=== PATIENT | female | born 1990 | race Caucasian/White ===

== ENCOUNTER 2019-07-16 16:36 | Emergency (ER) | payer OTHER, SELFPAY ==
[2019-07-16 16:45] VITALS: BP 121/82; PULSE 67; RESP 20; TEMP 36.3; O2SAT 100
--- NOTE | 2019-07-16 16:50 | ED.GENADULT ---
HPI - General Adult General Chief complaint: Upper Respiratory Infection Stated complaint: congestion/cough/sore throat Time Seen by Provider: 07/16/19 16:50 Source: patient Mode of arrival: ambulatory Limitations: no limitations History of Present Illness HPI narrative: 28-year-old female patient presents to the [facility] with complaints of cold symptoms for the past 12 days with a slight cough. Patient states she has had a lot of pressure to her head and face along with some itchy watery eyes, pressure to bilateral ears, nasal congestion and slight runny nose. Patient states that she has a cough mainly in the morning when she wakes up and states she has been coughing up some green sputum. Patient denies any chest pain or shortness of breath. Patient denies any abdominal pain, nausea, vomiting or diarrhea. Patient denies any fevers that she is aware of. Patient states that she did get a flu shot this year. Patient denies any or breast-feeding at this time. Related Data Allergies Allergy/AdvReac Type Severity Reaction Status Date / Time No Known Allergies Allergy Uncoded 03/29/19 17:25 Review of Systems Review of Systems: Narrative: CONSTITUTIONAL: Denies fever, chills, or sweats. EYES: Denies visual changes, positive redness, and clear discharge. ENT: Positive rhinorrhea, congestion, sore throat, and bilateral otalgia. CARDIOVASCULAR: Denies chest pain, palpitations, or edema. RESPIRATORY: Positive mild productive cough, denies dyspnea. GASTROINTESTINAL: Denies abdominal pain, nausea, vomiting, or diarrhea. GENITOURINARY: Denies dysuria or hematuria. SKIN: Denies rash or itching. MUSCULOSKELETAL: Denies back pain, joint pain, or myalgia. NEUROLOGIC: Positive headache, denies numbness, or weakness. PSYCHIATRIC: Denies anxiety or depression. PMFSH Social History Social History Gender identity (if verbalized by the patient): Female Comments At the time of my signature I agree with nursing past medical history, surgical, social, and family history. There is no relevant family history pertinent to the presenting complaint. Exam Narrative: Exam Narrative: GENERAL: Well-appearing, well-nourished, and in no acute distress. HEAD: Normocephalic, atraumatic. Tenderness noted to frontal maxillary sinuses on palpation. EYES: PERRLA and EOMI. ENT: Nares with erythema and edema noted bilaterally, no rhinorrhea or epistaxis. Mucous membranes moist. Posterior pharynx with no erythema, tonsillectomy, exudates or lesions present. Bilateral TMs are slightly cloudy but no erythema or foreign bodies in the canal. NECK: Supple. No lymphadenopathy CHEST: Clear to auscultation. No respiratory distress. HEART: Regular rate and rhythm. No murmur heard. Normal peripheral pulses. ABDOMEN: Soft, nontender, nondistended, normal active bowel sounds. EXTREMITIES: Normal range of motion. No edema. SKIN: Warm, dry, no rash. NEURO: No focal deficits. Alert and oriented x3. Course Vital Signs Vital signs: Vital Signs Temperature 36.3 C L 07/16/19 16:45 Pulse Rate 67 07/16/19 16:45 Respiratory Rate 20 07/16/19 16:45 Blood Pressure 121/82 07/16/19 16:45 Pulse Oximetry 100 07/16/19 16:45 Temperature 36.3 C L 07/16/19 16:45 Pulse Rate 67 07/16/19 16:45 Respiratory Rate 20 07/16/19 16:45 Blood Pressure 121/82 07/16/19 16:45 Pulse Oximetry 100 07/16/19 16:45 Vital signs reviewed. The patient has been informed that they may have pre-hypertension or Hypertension based on a BP reading in the department. I recommend that the patient call the primary care provider listed on their discharge instructions or a physician of their choice this week to arrange follow up for further evaluation of possible pre-hypertension or Hypertension Medical Decision Making Differential Diagnosis Differential Diagnosis: Differential diagnosis: Allergic rhinitis, chronic sinusi
== END 2019-07-16 17:00 | disposition home or self-care (01) ==
PROVIDERS: Emergency Provider Nurse Practitioner Family
DX: J01.10 Acute frontal sinusitis, unspecified (principal); J01.00 Acute maxillary sinusitis, unspecified
CPT/HCPCS: 99213; G0463

== ENCOUNTER 2020-10-28 05:57 | Inpatient (IN) | payer BC, SELFPAY ==
[2020-10-28] VITALS (89 sets, daily range): BP systolic 68–152; BP diastolic 37–94; PULSE 52–100; RESP 18–20; TEMP 36.2–37.4; O2SAT 99–100; BMI 38.0
[2020-10-28] MEDS: LACTATED RINGERS 1,000 ML 125 ML IV CONT ×3 (06:24→11:04)
[2020-10-28] MEDS: OXYTOCIN 30 UNITS/NS 500 ML 30 UNITS/500 ML BAG IV CONT (06:25)
--- NOTE | 2020-10-28 06:30 | LDADM ---
This patient, Mari Campbell, was admitted to Labor/Delivery/Recovery 108 on 10/28/20 at 05:57. Plans for labor, pain management and were discussed with patient. Patient/family oriented to hospital policies and general routines including ID bracelet, bed and alarms, visiting hours, pain management, procedures, bathroom and other care routines, personal items, smoking policy, room service/diet and guest tray routines, security routines, and visiting hours. Patient/Family are encouraged to report perceived risks to care and to ask questions if they do not understand what they are told or what they should do. See OBIX for further documentation.
[2020-10-28 06:34] LABS: Basophils Percent Auto 0.1 % (0.2-1.2); Eosinophils Percent Auto 0.1 % (0-4.4); Hematocrit 35.4 % (37.0-47.0); Hemoglobin 11.9 g/dL (12.0-15.0); Immature Granulocyte Absolute 0.02 K/mm3 (0.00-0.031); Immature Granulocyte Percent A 0.3 % (0-0.5); Lymphocytes Absolute Auto 1.99 K/mm3 (0.9-3.2); Lymphocytes Percent Auto 27.5 % (18.3-44.2); Mean Corpuscular HGB Conc 33.6 g/dl (32-36); Mean Corpuscular Hemoglobin 29.1 pg (26-34); Mean Corpuscular Volume 86.6 fl (80-100); Mean Platelet Volume 10.9 fl (7.4-10.4); Monocytes Absolute Auto 0.5 K/mm3 (0.1-0.6); Monocytes Percent Auto 7.5 % (2.6-8.5); Neutrophils Absolute Auto 4.7 K/mm3 (1.3-6.7); Neutrophils Percent Auto 64.5 % (45.5-73.1); Platelet Count Result 173 k/mm3 (150-375); Red Blood Count 4.09 M/mm3 (4.2-5.4); Red Cell Distribution Width 13.4 % (11.5-14.5); White Blood Count 7.2 K/mm3 (4.5-10.0)
--- NOTE | 2020-10-28 06:56 | P.PNAN_ITS ---
Anes - Eval Pre Procedure Procedure: labor epidural Date/Time: 10/28/20 06:56 Surgeon: tracy Preop Diagnosis: pain during labor Pre Op Diagnosis: IOL Patient Data Age: 30 Gender: F Height: 1.68 m Weight: 107 kg Last Vital Signs Pulse 76 10/28/20 06:44 BP 113/77 10/28/20 06:44 Allergies Allergy/AdvReac Type Severity Reaction Status Date / Time No Known Allergies Allergy unknown Uncoded 03/10/20 13:39 Home Medications Medication Instructions Recorded Confirmed Type PNV no.[id number] 1 tablet PO DAILY 10/03/20 10/28/20 History [ Gummies] famotidine [Pepcid] 20 mg PO DAILY 10/03/20 10/28/20 History valacyclovir [Valtrex] 500 mg PO DAILY 10/03/20 10/28/20 History Laboratory Tests 10/28/20 10/28/20 06:23 06:23 WBC 7.2 K/mm3 K/mm3 (4.5-10.0) RBC 4.09 M/mm3 L M/mm3 (4.2-5.4) Hgb 11.9 g/dL L g/dL (12.0-15.0) Hct 35.4 % L % (37.0-47.0) MCV 86.6 fl fl (80-100) MCH 29.1 pg pg (26-34) MCHC 33.6 g/dl g/dl (32-36) RDW 13.4 % % (11.5-14.5) Plt Count 173 k/mm3 k/mm3 (150-375) MPV 10.9 fl H fl (7.4-10.4) Immature Gran % (Auto) 0.3 % % (0-0.5) Neut % (Auto) 64.5 % % (45.5-73.1) Lymph % (Auto) 27.5 % % (18.3-44.2) [place] % (Auto) 7.5 % % (2.6-8.5) Eos % (Auto) 0.1 % % (0-4.4) Baso % (Auto) 0.1 % L % (0.2-1.2) Lymph # (Auto) 1.99 K/mm3 K/mm3 (0.9-3.2) [place] # (Auto) 0.5 K/mm3 K/mm3 (0.1-0.6) Eos # (Auto) 0.0 K/mm3 K/mm3 (0-0.3) Baso # (Auto) 0.0 K/mm3 K/mm3 (0.0-0.1) Abs Immat Gran (auto) 0.02 K/mm3 K/mm3 (0.00-0.031) Absolute Neuts (auto) 4.7 K/mm3 K/mm3 (1.3-6.7) Absolute Nucleated RBC 0.0 K/mm3 K/mm3 (0.0-0.012) Nucleated RBC % 0.0 % % (0.0-0.2) RPR Pending Patient hx anesthesia problems: none Family hx anesthesia problems: none PMFSH Past Medical History Medical History (Updated 03/10/20 @ 14:33 by Ayanna Delgadillo MD) Asthma HSV-1 (herpes simplex virus 1) infection Migraines Vaginal delivery Surgical History Surgical History [place] teeth removed Family History Family History Grandparent Carcinoma of colon Diabetes mellitus Cerebrovascular accident Leukemia Mother Fibromyalgia Social History Social History Smoking status: Never smoker Alcohol intake: current Drinks per week: 1 Substance use: never Gender identity (if verbalized by the patient): Female Spiritual care concerns: No Exam Day of Procedure 10/28/20 06:56
--- NOTE | 2020-10-28 08:45 | WPDOBADMIT ---
Obstetrics - Admit Note Admission Note: record reviewed. Additions to the history and/or subsequent changes in the physical findings follow. 30 y/o at 40 1/7 weeks here for induction of labor. GBS neg. 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 AVSS NST reactive TOCO: contractions every 2-4 min ABD soft, nontender, gravid, vertex EXT nontender Cervix 3/50/-2. AROM with clear fluid. Vertex. A: IUP at 40 1/7 weeks, desiring induction of labor. Favorable cervix. P: Oxytocin. Anticipate .
[2020-10-28 10:20] LABS: Rapid Plasma Reagin Non-Reactive (NonReactive)
--- NOTE | 2020-10-28 12:00 | PM.OBPNLAB ---
Pain Control Date/time seen: 10/28/20 1200 Comments: Comfortable with epidural. Pelvic Exam Dilation (cm): 6 Effacement (%): 90 station: 0 Contractions Contraction frequency: 3 Contraction pattern: Regular Status status: Category l Assessment and Plan Pitocin rate (mU/min): 12 Comments: Continue labor
[2020-10-28] MEDS: OXYTOCIN 30 UNITS/NS 500 ML 30 UNITS/500 ML BAG 125 UNITS IV CONT (13:14)
--- NOTE | 2020-10-28 13:19 | PM.OBPRVD ---
OB - Delivery Note Procedure Delivery date: 10/28/20 Procedure: Induction of labor with Induction method: per pitocin protocol Delivery augmentation: rupture of membranes Delivery monitor: external FHT, external uterine and internal uterine Route of delivery: Laceration Description: None Specimen: Yes (cord blood) Quantitative Blood Loss (ml): 65 Anesthesia type: Epidural Disposition: PACU Complications: None Narrative: 30 y/o at 40 1/7 weeks gestation who presented to the hospital for induction of labor. Oxytocin was administered intravenously. Amniotomy was performed with return of clear fluid. She received an epidural for pain control. Her labor progressed and her cervix dilated completely. She pushed with good effort and delivered the infant's head to the perineum, followed by the body. The nose and mouth were bulb suctioned. After a delay, the cord was clamped and cut. The was handed off the field. Cord blood was collected. The placenta delivered spontaneously and was grossly normal in appearance. The usual 3 vessel cord was noted. The perineum was intact. Needle and instrument counts were correct. The patient was taken to recovery room in stable condition. The went to the nursery in stable condition. I was present and scrubbed for the entire delivery. Baby Date of : 10/28/20 Time of : 12:55 Weeks of gestation at delivery: 40 gender: Female Weight (pounds): 8 Weight (ounces): 1 presentation: vertex position: Right Occiput Anterior Placenta delivery description: Spontaneous and Normal Configuration cord vessel description: 3 Vessels and Delayed Cord Clamping score one minute: 9 score five minutes: 9
--- NOTE | 2020-10-28 13:23 | PM.OBDSVD ---
DS: Admitting Diagnosis Admitting Diagnosis Admitting Diagnosis: IUP at 40 1/7 weeks Favorable cervix DS: Discharge Diagnosis Discharge Diagnosis (1) (normal spontaneous vaginal delivery): Code(s): O80 - Encounter for full-term uncomplicated delivery Status: Acute OB - DS: Summary OB Procedures : None OB Procedures Intrapartum: Spontaneous Vag Delivery OB Procedures: : None DS: Data Data Completed and Pending Labs on day of discharge: Labs from last 24 hours 10/28/20 10/28/20 10/28/20 06:23 06:23 06:23 WBC 7.2 RBC 4.09 L Hgb 11.9 L Hct 35.4 L MCV 86.6 MCH 29.1 MCHC 33.6 RDW 13.4 Plt Count 173 MPV 10.9 H Immature Gran % (Auto) 0.3 Neut % (Auto) 64.5 Lymph % (Auto) 27.5 [place] % (Auto) 7.5 Eos % (Auto) 0.1 Baso % (Auto) 0.1 L Lymph # (Auto) 1.99 [place] # (Auto) 0.5 Eos # (Auto) 0.0 Baso # (Auto) 0.0 Abs Immat Gran (auto) 0.02 Absolute Neuts (auto) 4.7 Absolute Nucleated RBC 0.0 Nucleated RBC % 0.0 RPR Non-reactive Blood Type A Positive Antibody Screen Negative Discharge Plan Discharge Attending physician on discharge: Deepak Sharma Consulting providers: Jamie Marie Discharging Clinician: Deepak Sharma Patient Disposition: Home, Self-Care Activity: pelvic rest Diet: regular Discharge Instructions: Education: Mom and Baby Guide Given to: Mother Follow-Up: Call your delivering provider's office for an appointment to be seen in: 6 Weeks Mom and baby should come to the [facility] for the follow-up appointment. Appointment Date/Time: Monday, November 02, 2020 at 11:00 a.m. What to expect at your follow-up visit: Blood Pressure Check Physical Assessment Call [phone] if you are unable to keep your appointment time. BREAST CARE: * Wear a snug supportive bra. * For engorgement discomfort: Breast Feeding: * Apply warm moist washcloths * Express milk as needed to relieve engorgement * Wear loose clothing * For sore nipples: * Identify correct latch-on * Apply warm moist washcloths before and after nursing * Air dry nipples after nursing * May apply Lansinoh cream to nipples EPISIOTOMY/PERINEAL CARE: * Until bleeding stops, use your bonnie bottle after urinating * Change your pad frequently throughout the day * You may take sitz baths several times a day (fill your bathtub with warm water and soak for 20 minutes.) Do NOT bathe in the water * No tub baths until seen by your physician - You may shower ACTIVITY: * Rest as much as possible. * Do not exercise or lift anything heavier than your baby (such as laundry or other children.) * Avoid stairs or driving as much as possible. * Do not put anything into the vagina. No douching, tampons, or sexual activity until seen by physician. NOTIFY PHYSICIAN IF YOU HAVE ANY QUESTIONS OR IF ANY OF THE FOLLOWING SYMPTOMS OCCUR: * If your vaginal bleeding becomes foul smelling. * If your vaginal bleeding becomes more heavy than a period or if your bleeding changes from pink to bright red. However, you may pass an occasional walnut-sized clot once or twice for the first week . * If you experience a sharp, shooting pain in you calves. * If you discover a hard, reddened area on your breast or if you experience flu-like symptoms. DIET: * Eat regular, well-balanced meals. * Drink plenty of fluids daily. If , drink to thirst. Call or return if temperature above 100.4? F, increased abdominal pain, increased vaginal bleeding or any new problems. Stand Alone Forms: General Discharge Information Follow-up/Referrals: Deepak Sharma MD [Physician] - 6 Weeks Discharge Medications: New ibuprofen 600 mg tablet 600 mg PO Q6H PRN (Reason: cramps) Qty: 30 RF: 0 Continued Prenat
[2020-10-28] MEDS: BENZOCAINE 20% AER SPR (*SP) 56 GM CAN 1 SPRAY TOPICAL (15:11)
[2020-10-28] MEDS: WITCH HAZEL 40 PADS 1 PAD TOPICAL (15:11)
--- NOTE | 2020-10-28 15:30 | OBPPTRN ---
Patient transferred to post room # 281 via wheelchair. Support person present. Oriented to unit, room, information board, rooming in, admission packet and security measures. Patient verbalizes understanding.
[2020-10-28] MEDS: IBUPROFEN 600 MG TABLET PO (22:13)
[2020-10-29] VITALS (7 sets, daily range): BP systolic 108–132; BP diastolic 64–76; PULSE 69–75; RESP 16–18; TEMP 36.8–36.9; O2SAT 99–100
[2020-10-29] MEDS: IBUPROFEN 600 MG TABLET PO ×3 (04:55→20:31)
[2020-10-29 05:53] LABS: Hemoglobin 10.1 g/dL (12.0-15.0)
--- NOTE | 2020-10-29 09:00 | PM.OBPNVD ---
OB - PN: Subj Subjective Date/time seen: 10/29/20 09:00 Narrative: Pain OK. OB - PN: Obj Data Labs CBC & Chem 7: 10/29/20 04:49 Labs: Laboratory Results - last 24 hr 10/28/20 10/29/20 06:23 04:49 Hgb 10.1 L Hct 30.0 L RPR Non-reactive OB - PN A/P Plan Comments: A: PPD#1, doing well. P: Routine care. Exam Psych: Other: AVSS ABD soft, nontender, fundus firm EXT nontender
[2020-10-29] MEDS: MULTIVIT/MIN/PREN/FOL AC/IRON TABLET 1 TAB PO (09:37)
--- NOTE | 2020-10-29 10:54 | WPDANLDPN2 ---
Anes-Prog Note L&D Date/Time: 10/29/20 10:54 Comfortable throughout: labor and delivery Neuraxial method: epidural Epidural/Spinal procedure site: clean & non-tender Neuro status: Neuro function grossly intact. Cardiovascular status: normal Respiratory status: normal Airway patency: baseline Mental status: baseline Post-Op hydration status: normal Vital Signs: Last Vital Signs Temp 36.9 C 10/29/20 08:20 Pulse 74 10/29/20 08:45 Resp 16 10/29/20 08:45 BP 115/73 10/29/20 08:20 Pulse Ox 100 10/29/20 08:45 Pain score (VAS): 06/28 Post-procedural complaints: none Patient feedback: Patient satisfied with anesthetic care.
--- NOTE | 2020-10-29 13:30 | PC.NURSE ---
1330 Mother called out for assist with feeding. Mother reports has been latching for feedings with some tenderness. Mother did not breastfeed first child. Reviewed infant feeding cues, frequencies, duration of feedings, feeding elimination flow sheet, and signs of adequate intake. Demonstrated stimulation techniques to wake for feeding. Assisted with infant to breast. Reviewed positioning/alignment in cross cradle, holding breast in ?U? hold and guided asymmetrical latch on. able to latch correctly. nursed eagerly, with steady draws and frequent swallowing noted. Reviewed signs of a correct latch, effective nursing and suck swallow ratio. Infant would slip to shallow latch, mother reports tenderness. Demonstrated how to adjust latch more deeply while feeding. Mother reports she can feel change in latch and has no tenderness. Nipple care reviewed of lanolin after feedings, warm compresses and gel pads as needed. Suggested mother stimulate while feeding to increase stimulate, increase intake and to assist with maintaining deep latch. Instructed mother to call out for RN assistance if she is unable to latch infant for feeding or she has discomfort with nursing. Instructed feeding should be initiated three hours from start of last feeding or if feeding cues are noted before. Mother voiced understanding of information shared.
--- NOTE | 2020-10-30 07:27 | P.DS_ITS ---
DS: Admitting Diagnosis Admitting Diagnosis Admitting Diagnosis: intrauterine at term DS: Summary Hospital Course Hospital Course: 40 yo who underwent IOL. hospital course was uncomplicated. Pt had a . Status at Discharge Functional status at discharge: independent ambulation Overall status at discharge: patient is back to baseline Time Spent with Patient Time attestation: Total time spent providing and/or coordinating discharge services: Time spent: Less than 30 minutes Exam Const: General: comfortable and no acute distress Resp: Effort & Inspection: normal respiratory effort Auscultation: clear to auscultation bilaterally Cardio: Rate: regular rate GI: GI Palp: Yes Soft to palpation Auscultation: normal bowel sounds Other: Fundus firm below umbilicus Psych: Appearance: grossly normal Mental Status: mental status grossly normal Affect: normal affect Discharge Plan Discharge Attending physician on discharge: Deepak Sharma Consulting providers: Jamie Marie Discharging Clinician: Deepak Sharma Patient Disposition: Home, Self-Care Activity: pelvic rest Diet: regular Discharge Instructions: Call or return if temperature above 100.4? F, increased abdominal pain, increased vaginal bleeding or any new problems. Stand Alone Forms: General Discharge Information Follow-up/Referrals: Deepak Sharma MD [Physician] - 6 Weeks Discharge Medications: New ibuprofen 600 mg tablet 600 mg PO Q6H PRN (Reason: cramps) Qty: 30 RF: 0 No Action valacyclovir [Valtrex] 500 mg Tablet 500 mg PO DAILY RF: 0 famotidine [Pepcid] 20 mg Tablet 20 mg PO DAILY RF: 0 Gummies 400 mcg-35 mg- 25 mg-5 mg Tablet,Chewable 1 tablet PO DAILY RF: 0 Date of admission: 10/28/20 05:57 Primary Care Provider: PHYSICIAN,MOLDING MACHINE OPERATOR Admitting Provider: Deepak Sharma Attending physician on admission: Deepak Sharma Condition: Stable
[2020-10-30 08:10] VITALS: BP 109/69; PULSE 77; RESP 16; TEMP 36.8; O2SAT 100
[2020-10-30] MEDS: MULTIVIT/MIN/PREN/FOL AC/IRON TABLET 1 TAB PO (08:37)
[2020-10-30] MEDS: IBUPROFEN 600 MG TABLET PO (08:37)
[2020-10-30 08:45] VITALS: PULSE 75; RESP 16; O2SAT 100
--- NOTE | 2020-10-30 09:00 | PC.NURSE ---
0900 Consult with pt., mother reports she continues to have nipple tenderness with feeding, left more than right. Skin is intact and no discoloration noted. Reviewed nipples can have tenderness from shallow latch and skin is intact. Reviewed nipple care of lanolin after feedings, warm compresses several times per day and gel pads as needed. Observed mother is able to independently latch infant with appropriate positioning/alignment. will latch deeply and tends to pull back to shallow latch during the feeding. Suggested mother give gentle resistance and not allow infant to pull back. Demonstrated how to adjust latch more deeply while feeding. Mother reports she can feel is latched more deeply, she continues to report tenderness stating much less than before adjustment. Discussed assisting maintain latch with holding breast and good alignment during entire feeding. She is feeding as required and waking infant to feed if needed. Infant has had at least 8 effective feedings in the past 24 hours, and is currently meeting outcomes for weight, output, jaundice and feeding frequencies. Mother states she feels confident to continue effective at home. Reviewed transition to breast milk, signs of adequate intake, and engorgement/relief. Instructed to call ICP if intake/output less than required. Reviewed regular medications mother is taking. Information provided per Estephania. Reviewed community resources on the [facility] website and in the Mom/Baby guide. Information on outpatient services provided. Mother has no further questions at this time.
--- NOTE | 2020-10-30 13:39 | PC.NURSE ---
1000-Patient viewed the discharge video Mother & Baby Care, The First Two Weeks . Patient was given the opportunity and encouraged to ask questions. Patient verbalized understanding of information shared and has been given the mother/baby guide for home reference.
[2020-11-02 11:21] VITALS: BP 130/84; PULSE 68; RESP 20; TEMP 36.9; O2SAT 100
== END 2020-10-30 13:00 | disposition home or self-care (01) | DRG 806 ==
LOC: ANHLDR 13:24 → ANHOB2 10-29 11:22 → ANHLDR 11-02 10:02 → ANHOB2 11-02 10:02
PROVIDERS: Admitting Provider Obstetrics & Gynecology; Visit Provider Student in an Organized Health Care Education/Training Program
DX: O99.52 Diseases of the respiratory system complicating childbirth (principal); O98.32 Other infections with a predominantly sexual mode of transmission complicating childbirth; Z37.0 Single live birth; Z3A.40 40 weeks gestation of pregnancy; J45.909 Unspecified asthma, uncomplicated; A60.00 Herpesviral infection of urogenital system, unspecified
CPT/HCPCS: 36415; 85014; 85018; 85025; 86592; 86850; 86900; 86901; A9270; J2590; J2795; J7120

== ENCOUNTER 2022-07-22 13:46 | Emergency (ER) | payer BC, SELFPAY ==
--- NOTE | 2022-07-22 13:53 | ED.URI ---
HPI - URI/Sore Throat General Chief Complaint: Upper Respiratory Infection Stated Complaint: congestion Time Seen by Provider: 07/22/22 14:05 Source: patient, RN notes reviewed and old records reviewed Mode of arrival: ambulatory Limitations: no limitations History of Present Illness HPI Narrative: 31-year-old female presents to the [facility] with complaints of sinus congestion for at least 8 days. Has been trying Sudafed as well as Afrin Onset (ago): day(s) (8) Related Data Home Medications Medication Instructions Recorded Confirmed thyroid (pork) 90 mg tablet 90 mg DIRECTED 07/22/22 07/22/22 ([place] [facility]roid) Allergies Allergy/AdvReac Type Severity Reaction Status Date / Time No Known Allergies Allergy unknown Uncoded 03/10/20 13:39 Review of Systems Review of Systems: All systems reviewed & are unremarkable except as noted in HPI and below Constitutional: Constitutional: Reports no additional constitutional complaints Eyes: Eyes: Reports no additional eye complaints ENT: Reports as per HPI and Reports nasal congestion Cardiovascular: Cardiovascular: Reports no additional cardiovascular complaints, Denies chest pain and Denies dyspnea Respiratory: Respiratory: Reports no additional respiratory complaints, Denies chest congestion, Denies cough and Denies dyspnea Gastrointestinal: Gastrointestinal: Reports no additional gastrointestinal complaints, Denies abdominal pain, Denies nausea and Denies vomiting Musculoskeletal: Musculoskeletal: Reports no additional musculoskeletal complaints Integumentary/Breasts: Skin/Breast: Reports system reviewed and no additional complaints, except as docu Neurologic: Reports system reviewed and no additional complaints, except as documented Psychiatric: Psychiatric: Reports no additional psychiatric complaints Allergic/Immunologic: Allergic/Immunologic: Reports no additional allergic/immunologic complaints [facility] Past Medical History Medical History Asthma HSV-1 (herpes simplex virus 1) infection Migraines Vaginal delivery Surgical History Surgical History [place] teeth removed Family History Family History Grandparent Carcinoma of colon Diabetes mellitus Cerebrovascular accident Leukemia Mother Fibromyalgia Social History Social History Smoking status: Never smoker Alcohol intake: current Drinks per week: 1 Substance use: never Gender identity (if verbalized by the patient): Female Spiritual care concerns: No Comments At the time of my signature, I reviewed and agree with the nursing past medical, surgical, social, and family history. There is no relevant family history pertinent to the patient complaint. Exam Const: General: cooperative, healthy appearing, comfortable, no acute distress, well developed, alert and well nourished Nutritional Appearance: well nourished Orientation/consciousness: patient oriented x3 Limitations: no limitations HENMT: Head: normal to inspection Ears: hearing grossly normal bilaterally and external ears normal Face/Nose/Sinus: Normal external nose present, Normal nares present, Abnormal mucous membranes and turbinates present boggy bilateral and erythematous bilateral, Nasal discharge present, normal facial exam, face symmetric and sinus tenderness Face and sinus: normal facial exam Mouth: Yes Normal oral and palatal mucosa present, Yes lip normal and Yes moist mucous membranes Throat: posterior oropharynx normal, uvula midline and postnasal drainage Eyes: General: appearance normal, both eyes and all related structures Alignment and Position: alignment normal Periorbital: periorbital findings normal Conjunctivae: conjunctivae normal Pupils: Equal, round and reactive pupils presen
[2022-07-22 14:04] VITALS: BP 120/65; PULSE 72; RESP 18; TEMP 36.2; O2SAT 100
== END 2022-07-22 14:18 | disposition home or self-care (01) ==
PROVIDERS: Emergency Provider Nurse Practitioner; PCP Family Medicine
DX: J32.9 Chronic sinusitis, unspecified (principal); J45.909 Unspecified asthma, uncomplicated
CPT/HCPCS: 99213; G0463

== ENCOUNTER 2023-09-10 08:03 | Emergency (ER) | payer BC, SELFPAY ==
[2023-09-10 08:12] VITALS: BP 99/70; PULSE 80; RESP 16; TEMP 36.3; O2SAT 100
--- NOTE | 2023-09-10 08:22 | ED.URI ---
HPI - URI/Sore Throat General Chief Complaint: Upper Respiratory Infection Stated Complaint: Sore Throat Time Seen by Provider: 09/10/23 08:16 Source: patient and RN notes reviewed Mode of arrival: ambulatory Limitations: no limitations History of Present Illness HPI Narrative: Patient presents today complaining of 2 day history of sore throat, postnasal drip, headache, fatigue. Denies fever, congestion, rhinorrhea. Currently rates her pain 5/10, which increases with swallowing. She has tried Tylenol and Mucinex with some relief. Related Data Home Medications Medication Instructions Recorded Confirmed thyroid (pork) 90 mg tablet 90 mg DIRECTED 07/22/22 09/10/23 ([place] Thyroid) liothyronine 5 mcg tablet 15 mcg PO DAILY 09/10/23 09/10/23 spironolactone 100 mg tablet 100 mg PO DAILY 09/10/23 09/10/23 Allergies Allergy/AdvReac Type Severity Reaction Status Date / Time No Known Allergies Allergy unknown Uncoded 09/10/23 08:08 Review of Systems Review of Systems: CONSTITUTIONAL: Denies body aches, fever, chills, or sweats.+ fatigue EYES: Denies visual changes, redness, or discharge. ENT: Denies rhinorrhea, congestion, or otalgia.+ sore throat, postnasal drip CARDIOVASCULAR: Denies chest pain, palpitations, or edema. RESPIRATORY: Denies cough or dyspnea. GASTROINTESTINAL: Denies abdominal pain, nausea, vomiting, or diarrhea. GENITOURINARY: Denies dysuria or hematuria. SKIN: Denies rash, itching, or wounds. MUSCULOSKELETAL: Denies back pain, joint pain, or myalgia. NEUROLOGIC: Denies numbness, tingling, or weakness.+ headache PSYCH: Denies depression or anxiety. [facility] Past Medical History Medical History (Updated 09/10/23 @ 08:28 by Edelmira Chan, AB, LILI) Asthma HSV-1 (herpes simplex virus 1) infection Migraines Vaginal delivery Surgical History Surgical History (Updated 09/10/23 @ 08:24 by AB Whitney, LILI) H/O thyroidectomy [place] teeth removed Family History Family History Grandparent Carcinoma of colon Diabetes mellitus Cerebrovascular accident Leukemia Mother Fibromyalgia Social History Social History Smoking status: Never smoker Alcohol intake: current Drinks per week: 1 Substance use: never Gender identity (if verbalized by the patient): Female Spiritual care concerns: No Comments At time of signature, I have reviewed and agree with nursing past medical, surgical, social and family history unless otherwise noted. Please see nursing chart for further information. There is no relevant family history pertinent to the presenting complaint Exam Narrative: GENERAL: Well-appearing, well-nourished, and in no acute distress. HEAD: Normocephalic, atraumatic. EYES: EOMI. No redness or drainage. Conjunctivae normal. ENT: Mucous membranes pink and moist. Nares clear. No rhinorrhea. TMs normal bilaterally. Throat erythematous with mild edema. No exudate. Uvula midline. NECK: Normal AROM. Supple. Bilateral anterior cervical chain lymphadenopathy CHEST: No respiratory distress. Clear to auscultation. HEART: Regular rate and rhythm. No murmur appreciated. EXTREMITIES: Normal range of motion. No edema. SKIN: Warm, dry, no rash. Capillary refill normal. Normal skin turgor. NEURO: No focal deficits. Alert and oriented x3. Gait steady. PSYCH: Normal affect. No signs of depression or anxiety. Course Course Level of Care: Express Care Visit Vital Signs Vital signs: Vital Signs Temperature 97.3 F L 09/10/23 08:12 Pulse Rate 80 09/10/23 08:12 Respiratory Rate 16 09/10/23 08:12 Blood Pressure 99/70 L 09/10/23 08:12 Pulse Oximetry 100 09/10/23 08:12 Oxygen Delivery Room Air 09/10/23 08:12 Temperature 97.3 F L 09/10/23 08:12 Pulse Rate 80 09/10/23 08:12 Respiratory Rate 16 09/10/23 08:12 Blo
== END 2023-09-10 08:30 | disposition home or self-care (01) ==
PROVIDERS: Emergency Provider Nurse Practitioner; PCP Family Medicine
DX: J02.0 Streptococcal pharyngitis (principal); J45.909 Unspecified asthma, uncomplicated; E89.0 Postprocedural hypothyroidism
CPT/HCPCS: 87880; 99213; G0463

== ENCOUNTER 2024-05-09 09:54 | Emergency (ER) | payer BC, SELFPAY ==
--- NOTE | 2024-05-09 09:59 | ED.URI ---
HPI - URI/Sore Throat General Chief Complaint: Upper Respiratory Infection Stated Complaint: sinus infection Time Seen by Provider: 05/09/24 09:59 Source: patient Mode of arrival: ambulatory Limitations: no limitations History of Present Illness HPI Narrative: Patient is a 33-year-old female who presents with 11 days of congestion, sinus pressure and pain. Patient has been taking Zyrtec and Flonase. Denies any fever, chills, nausea, vomiting, diarrhea, sore throat, cough. Reports her top teeth are now sore or an still continues to have copious amounts of drainage. Related Data Home Medications Medication Instructions Recorded Confirmed thyroid (pork) 90 mg tablet 90 mg DIRECTED 07/22/22 09/10/23 ([place] Thyroid) liothyronine 5 mcg tablet 15 mcg PO DAILY 09/10/23 09/10/23 spironolactone 100 mg tablet 100 mg PO DAILY 09/10/23 09/10/23 Allergies Allergy/AdvReac Type Severity Reaction Status Date / Time polymyxin B [From Polytrim] AdvReac Other Verified 05/09/24 10:05 trimethoprim [From Polytrim] AdvReac Other Verified 05/09/24 10:05 Review of Systems Review of Systems: All systems reviewed & are unremarkable except as noted in HPI and below Constitutional: Constitutional: Denies body ache(s), Denies chills, Denies fatigue, Denies fever(s), Denies headache(s), Denies malaise and Denies weakness Eyes: Eyes: Denies blurry vision, Denies itchy eyes and Denies loss of vision ENT: Denies otalgia, Denies headache(s), Reports nasal congestion, Reports sinus pain, Reports sinus pressure and Denies sore throat Cardiovascular: Cardiovascular: Denies chest pain, Denies irregular heart rhythm and Denies dyspnea Respiratory: Respiratory: Denies cough and Denies dyspnea Gastrointestinal: Gastrointestinal: Denies abdominal pain, Denies diarrhea, Denies nausea and Denies vomiting Musculoskeletal: Musculoskeletal: Denies back pain, Denies myalgias and Denies arthralgias Integumentary/Breasts: Skin/Breast: Denies pruritus and Denies rash Neurologic: Denies headache(s), Denies loss of vision and Denies weakness Psychiatric: Psychiatric: Reports no additional psychiatric complaints Endocrine: Endocrine: Denies fatigue Allergic/Immunologic: Allergic/Immunologic: Denies itchy eyes PMFSH Past Medical History Medical History Asthma HSV-1 (herpes simplex virus 1) infection Migraines Vaginal delivery Surgical History Surgical History H/O thyroidectomy [place] teeth removed Family History Family History Grandparent Carcinoma of colon Diabetes mellitus Cerebrovascular accident Leukemia Mother Fibromyalgia Social History Social History Smoking status: Never smoker Alcohol intake: current Drinks per week: 1 Substance use: never Gender identity (if verbalized by the patient): Female Spiritual care concerns: No Comments At time of signature, agree with nursing past medical, surgical, social and family history. There is no relevant family history pertinent to the presenting complaint. Exam Const: General: cooperative, healthy appearing, comfortable, no acute distress and well nourished Nutritional Appearance: well nourished Orientation/consciousness: patient oriented x3 Limitations: no limitations HENMT: Head: normal to inspection, normocephalic and atraumatic Ears: hearing grossly normal bilaterally, external ears normal, TM's normal bilaterally, EAC's normal and no periauricular adenopathy Face/Nose/Sinus: Normal external nose present, Abnormal mucous membranes and turbinates present erythematous bilateral and diffuse, normal facial exam, face symmetric and Facial tenderness on exam of face and sinuses Face and sinus: normal facial exam, face symmetric and sinus tenderness maxillary Mouth: Yes Normal oral and palatal mucosa present, Yes lip normal, Yes tongue normal, Yes Normal salivary glands and ducts present, Yes oropharynx normal and Yes moist mucous membranes Teeth and gingiva: dentition normal Throat: posterior oropharynx normal, tonsils normal and uvula midline Eyes: General: appearance normal, both eyes and all related structures Alignment and Position: alignment normal and position normal Periorbital: periorbital findings normal Eyelids: eyelids normal Pupils: Equal, round and reactive pupils present Neck: Neck: normal visual inspection, full ROM, no lymphadenopathy and supple Chest: Chest palpation & inspection: normal inspection of the chest and normal palpation of entire chest wall Resp: Effort & Inspection: normal respiratory effort and able to speak in complete sentences Auscultation: clear to auscultation bilaterally, no crackles, no rales, no rhonchi and no wheezes Cardio: Rate: regular rate Rhythm: regular rhythm Heart sounds: S1 normal heart sound present and S2 normal heart sound present GI: Inspection: normal to inspection Skin: General skin exam: normal color and no rashes or lesions noted Neuro: General: patient oriented x3 and moves all extremities Cranial nerves: Yes Equal, round and reactive pupils present Speech: normal speech Gait exam (Neuro): Normal gait present Extrem: General: normal to inspection, full ROM and no edema Psych: Appearance: grossly normal and well kempt Mental Status: mental status grossly normal Speech and movement: Normal speech and movement present Affect: normal affect Attitude: cooperative Thought process: Normal thought process present Course Course Emergency Course: Patient is aware of diagnosis, understands and agrees to treatment plan. Anticipatory guidance given. Patient agrees to follow-up as directed and is aware of reasons to seek care at the emergency department. Portions of this record may have been created with voice recognition software Level of Care: Express Care Visit Vital Signs Vital signs: Reviewed MDM - URI/Sore Throat MDM Narrative Medical decision making narrative: Discharge instructions reviewed with patient, as well as provided in writing per nursing staff. The instructions also include specific and strict return/GO TO THE ER as well as f/u information. All questions have been answered, and the patient deny any further questions with discharge and discharge plan. Differential diagnosis considered: [place] virus, strep pharyngitis, allergic rhinitis, upper respiratory tract infection, sinusitis, rhinosinusitis, nasopharyngitis. viral pharyngitis, otitis media, otitis externa, otitis effusion, foreign body, cerumen impaction, viral syndrome, and influenza.? Exam findings show no acute concerns or changes; patient is non-toxic appearing and is in no distress.? Patient is appropriate for outpatient treatment and follow-up.? Medical Records Attestation: I reviewed the patient's medical records. Discharge Plan Discharge Clinical Impression: Sinusitis Qualifiers: Sinusitis location: maxillary Chronicity: acute Recurrence: non-recurrent Qualified Code(s): J01.00 - Acute maxillary sinusitis, unspecified Patient Disposition: Home, Self-Care Condition: Stable Instructions: Sinusitis (ED) Additional Instructions: Take full course of antibiotics. Take steroids in the morning with food. Symptomatic treatment of a sinus infection aims to relieve symptoms. These treatments do not shorten the duration of illness. Nonprescription pain medications, such as acetaminophen (eg, Tylenol) or ibuprofen (eg, Motrin, Advil), are recommended for pain. Flushing the nose and sinuses with a saline solution several times per day has been proven to decrease pain associated with congestion and shorten the duration of symptoms. Nasal steroids (such as Flonase, 2 sprays in each nostril daily) can help to reduce swelling inside the nose, usually within two to three days. These drugs have few side effects and relieve symptoms in most people. Oral decongestants (pseudoephedrine and phenylephrine) may be helpful if you have associated symptoms of ear pain or fullness. Nasal decongestant sprays, including oxymetazoline (Afrin) and phenylephrine (Peter-Synephrine), can be used to temporarily treat congestion. However, these sprays should not be used for more than two to three days due to the risk of rebound congestion (when the nose becomes congested constantly unless the medication is used repeatedly), possible addiction, and long-term consequences of frequent use, including persistent nasal dryness and crusting, which is very difficult to treat once it has developed. Medications to thin secretions (such as guaifenesin) may help to clear mucus. Please follow-up with your primary care doctor in the next 1-2 days. If you cannot follow-up with your primary care doctor please go to the ED for any urgent issues. If you have any worsening of symptoms or any other concerns please go to the ED immediately. Prescriptions: New prednisone 20 mg tablet 40 mg PO DAILY 5 Days Qty: 10 0RF amoxicillin-pot clavulanate 875-125 mg tablet 1 tablet PO Q12H 7 Days Qty: 14 0RF No Action thyroid (pork) [[place] Thyroid] 90 mg tablet 90 mg DIRECTED spironolactone 100 mg tablet 100 mg PO DAILY liothyronine 5 mcg tablet 15 mcg PO DAILY amoxicillin 875 mg tablet 875 mg PO Q12H 10 Days Qty: 20 0RF Follow-up/Referrals: Gavin,DO Mary [Primary Care Provider] - 3 Days Time of Disposition: 10:08
[2024-05-09 10:02] VITALS: BP 105/63; PULSE 93; RESP 18; TEMP 36.2; O2SAT 100
== END 2024-05-09 10:12 | disposition home or self-care (01) ==
PROVIDERS: Emergency Provider Nurse Practitioner Family; PCP Family Medicine
DX: J01.00 Acute maxillary sinusitis, unspecified (principal); J45.909 Unspecified asthma, uncomplicated
CPT/HCPCS: 99213; G0463

== ENCOUNTER 2025-02-23 08:17 | Emergency (ER) | payer OTHER, SELFPAY ==
--- OUTSIDE RECORDS SUMMARY | 2025-02-23 08:19 | XMS_ITS | Encounter Summary ---
Author Organization [facility] Address [address] [place] [id number] Care Team Providers Care Cycle Manager Name Role Phone Mary Alonso DO Primary Care Provider [phone] Encounter Details Date Type Department Care Team (Late st Contact Info) Description 06/24/[address] [facility] [address] [facility] Diabetes and Endocrinology - [place] [address] [place] [address] [place] [address] Thyroid paperwork, Part 3 Social History Tobacco Use Types Packs/Day Years Used Date Smoking Tobacco: Never Smokeless Tobacco: Never Comments:N/A Alcohol Use Standard Drinks/Week Comments Not Currently 0 (1 standard drink = 0.6 oz pur e alcohol) social PHQ-2 Answer Date Recorded Patient Health Questionnaire-2 Score 0 06/15/2022 Comments No Sex and Gender Information Value Date Recorded Sex Assigned at Not on file Legal Sex Female 11:37 AM BAG END SEWER Gender Identity Female 07/19/2021 4:49 AM BAG END SEWER Sexual Orientation Not on file COVID-19 Exposure Response Date Recorded In the last 10 days, have yo u been in contact with someone who was confirmed or suspected to have Coronavirus/COVID-19? No / Unsure 06/15/2022 2:27 PM BAG END SEWER documented as of this encounter Plan of Treatment Not on file documented as of this encounter Visit Diagnoses Not on filedocumented in this encounter Care Teams Cycle Manager Relationship Specialty Start Date End Date Mary Alonso DO [address] [place] [phone] PCP - General FAMILY PRACTICE 04/28/20 documented as of this encounter
--- OUTSIDE RECORDS SUMMARY | 2025-02-23 08:19 | XMS_ITS | Clinical Summary ---
Author Organization [facility] Address [address] [place] [address] Care Team Providers Care Dental Laboratory Worker Name Role Phone GavinMary nevarez Primary Care Provider [phone] Source Comments [facility],non-owned Affiliates and Associated Physician Practices is amultiple site organization consisting of ambulatory clinics and hospital sitesin [place], [place], [place] and [place]. This disclosure is being madepursuant to the Care Everywhere program and may not contain all information available regarding this patient. Last updated 18.[facility] Allergies No known active allergies Medications * Be aware that medications may not be up to date on this document. Alwaysverify current medications with the patient. valACYclovir (Valtrex) 500 MG tablet Take 1 (one) tablet by mouth as needed 3 Active tretinoin (Retin-A) 0.05 % cream APPLY PEA SIZED AMOUNT TOPICALLY TO THE AFFECTED AREA EVERY NIGHT 3 Active fluticasone propionate (Flonase) 50 MCG/ACT nasal spray once daily as needed 3 Active thyroid, desiccated porcine, 120 MG capsule Take 1 (one) capsule by mouth daily before breakfast Active dapsone (Aczone) 7.5 % gel APPLY TOPICALLY TO ACNE PRONE AREAS DAILY 3 01/28/20 25 Discontin ued(List Clean-Up) phentermine (Ionamine) 15 MG capsule Take 1 (one) capsule by mouth 4 01/28/20 25 Discontin ued(List Clean-Up) spironolactone (Aldactone) 100 MG tablet Take 2 (two) tablets by mouth once daily 5 01/28/20 25 Discontin ued(List Clean-Up) tazarotene (Tazorac) 0.05 % gel APPLY TOPICALLY TO ACNE PRONE AREAS EVERY NIGHT TOLERATED 4 01/28/20 25 Discontin ued(List Clean-Up) triamcinolone acetonide (Kenalog) 0.1 % ointment APPLY TO AFFECTED AREA TWICE DAILY NEEDED FOR ITCHING 4 01/28/20 25 Discontin ued(List Clean-Up) thyroid ([place] Thyroid) 90 MG tabletIndicati ons:Hypothyroi dism,Malignant Neoplasm of Thyroid Take 1 (one) tablet by mouth once daily Reasons: Cancer of Thyroid, Underactive Thyroid 90 tablet 3 5 01/28/20 25 Discontin ued(List Clean-Up) Active Problems Problem Noted Date Diagnosed Date Thyroid cancer 07/17/2023 Overview (07/17/2023): Thyroidectomy 05/06/2021 Radioactive iodine ablation 05/28/2021 PT1a, pTN1a, Mx PTC MULTIFOCAL, CLASSICAL AND FOLLICULAR VARIANT 4/8 LYMPH NODES POSITIVE LARGEST MET 11 MM EXTRANODAL EXTENSION PRESENT NO ETE NO ANGIOINVASION TUMOR SIZE ISTHMUS 0.51 CM RIGHT LOBE 0.438 CM Hypothyroidism 07/17/2023 Allergic rhinitis 05/22/2023 07/16/2023 Migraine, unspecified, not i ntractable, without status migrainosus 05/22/2023 07/16/2023 Myopia, bilateral 05/22/2023 07/16/2023 Malignant neoplasm of thyroid gland 06/15/2022 07/16/2023 Overview (02/16/2024): CAP SCORE TOTAL THYROIDECTOMY MULTIFOCAL PTC, RIGHT LOBE 0.51 MM ISTHMUS 0.438 MM CLASSICAL PTC AND FOLLICULAR VARIANT ETE -NEGATIVE ANGIOINVASION -NEGATIVE LYMPH NODES 4/8 POSITIVE LARGEST MET 11 MM EXTRANODAL EXTENSION (+) PT1A, PN1A, MX Cubital tunnel syndrome on left 11/23/2018 07/16/2023 Overview (07/16/2023): Last Assessment & Plan: Suspect cubital tunnel syndrome of the left arm given history of 4th and 5th digit involvement and tenderness in the elbow groove -Trial ibuprofen 600 t.i.d. for 2 weeks to decrease inflammation -refer to occupational therapy for exercises, bracing, education on triggers Acne 10/16/2017 07/16/2023 Overview (07/16/2023): Last Assessment & Plan: Patient reports continued acne. She has tried many treatment in past, but reports acne is worse. Refer to dermatology Last Assessment & Plan: Patient reports continued acne. She has tried many treatment in past, but reports acne is worse. Refer to dermatology Hemorrhoids 10/16/2017 07/16/2023 Overview (07/16/2023): Last Assessment & Plan: Patient reports hemorrhoids during her . She reports they will occ flare up. Patient reports she had a 'bubble' but it has gotten better. She wants to know how to get rid of hemorrhoids. Advised to keep stool soft and if has pain , call or rtc. Discussed treatment option, I do not recommend surgery at this time. No thrombosed hemorrhoids on exam. Last Assessment & Plan: Patient reports hemorrhoids during her . She reports they will occ flare up. Patient reports she had a 'bubble' but it has gotten better. She wants to know how to get rid of hemorrhoids. Advised to keep stool soft and if has pain , call or rtc. Discussed treatment option, I do not recommend surgery at this time. No thrombosed hemorrhoids on exam. Encounters Date Type Department Care Team Description 01/27/2025 9:40 AM CDT Office Visit [facility] - Endocrinology [address] [place] [address] Matthew Nettles MD Hypothyroidism, acquired (Primary Dx); Thyroid cancer (HCC); Malignant neoplasm of thyroid gland (HCC) 01/27/2025 Travel 01/24/2025 Orders Only [facility] - Endocrinology [address] [place] [phone] Matthew Nettles MD Hypothyroidism, acquired; Thyroid cancer (HCC); Malignant neoplasm of thyroid gland (HCC) from Last 3 Months Family History Medical History Relation Name Comments Diabetes - Type 2 Maternal Grandfather Diabetes - Type 2 Maternal Grandmother Arthritis - Osteo Mother COPD - Chronic Obstructive Pulmonary Disease Mother Glaucoma Mother Other Mother FIBROMYALGIA Thyroid Disease Mother NODULAR GOIT ER Hypertension Neg Hx Renal Disease Neg Hx Relation Name Status Comments Brother Alive Father Alive Maternal Grandfather Maternal Grandmother Mother Alive Sister Alive Social History Tobacco Use Types Packs/Day Years Used Date Smoking Tobacco: Never Smokeless Tobacco: Never Tobacco Cessation:Counseling Given: Not Answered Alcohol Use Standard Drinks/Week Comments Not Asked 0 (1 standard drink = 0.6 oz pur e alcohol) TWO DRINKS PER MONTH PHQ-2 Answer Date Recorded Patient Health Questionnaire-2 Score 0 01/27/2025 Comments Unknown Sex and Gender Information Value Date Recorded Sex Assigned at Not on file Legal Sex Female 11:28 AM QUALITY IMPROVEMENT CONSULTANT Gender Identity Not on file Sexual Orientation Not on file Last Filed Vital Signs Vital Sign Reading Time Taken Comments Blood Pressure 98/71 01/27/2025 9:58 AM CDT Pulse 63 01/27/2025 9:58 AM CDT Temperature 36.6 C (97.8 F) 02/16/2024 11:15 AM CDT Respiratory Rate - - Oxygen Saturation 93% 01/27/2025 9:58 AM CDT Inhaled Oxygen Concentration - - Weight 94.8 kg (209 lb) 01/27/2025 9:58 AM CDT Height 167.6 cm (5' 6) 01/27/2025 9:58 AM CDT Body Mass Index 33.73 01/27/2025 9:58 AM CDT Plan of Treatment Upcoming Encounters Date Type Department Care Team (Late st Contact Info) Description 07/29/2025 11:00 AM QUALITY IMPROVEMENT CONSULTANT Office Visit [facility] - Endocrinology [address] [place] [phone] Matthew Nettles MD [address] [place] [address] Health Maintenance Due Date Last Done Comments HIV SCREENING 2005 HEPATITIS C SCREENING 08/23/2008 DTAP/TDAP/TD VACCINES (1 - Tdap) 2009 HEPATITIS B VACCINE (1 of 3 - 19+ 3-dose series) 2009 PAP SMEAR 08/29/2011 HPV VACCINE (1 - 3-dose SCDM series) 2017 COVID-19 VACCINE (3 - season) 2025 11/24/2020, 11/03/2020 INFLUENZA VACCINE (#1) 2025 , 05/04/2023, 04/19/2023, Additional history exists ZOSTER VACCINE (1 of 2) 2040 DEPRESSION SCREENING Completed 01/27/2025 HIB VACCINE Aged Out No longer eligi ble based on patient's age to complete this topic MENINGOCOCCAL (Group B) VACCINE SHARED DECISION-MAKING Aged Out No longer eligible based on patient's age to complete this topic MENINGOCOCCAL GROUPS A/C/Y/W VACCINE Aged Out No longer eligible based on patient's age to complete this topic PNEUMOCOCCAL VACCINE Aged Out No long er eligible based on patient's age to complete this topic [place] [address] [facility] Care Teams Dental Laboratory Worker Relationship Specialty Start Date End Date Mary Alonso DO [address] [place] [address] PCP - General Family Medicine 07/17/23
--- OUTSIDE RECORDS SUMMARY | 2025-02-23 08:19 | XMS_ITS | Encounter Summary ---
Author Organization [facility] Address [address] [place] [address] Care Team Providers Care Investment Manager Name Role Phone Mary Alonso DO Primary Care Provider [phone] Encounter Details Date Type Department Care Team (Late st Contact Info) Description 06/24/2022 MyCT4 Mediat Message Enc [facility] Medical Group Diabetes [place] Endocrin[place] [address] [facility] [place] [address] [place] [address] [place] [address] Thyroid medical paperwork, Part 1 Social History Tobacco Use Types Packs/Day Years [...] on file Legal Sex Female 11:37 AM AIRPLANE PILOT HELPER Gender Identity Female 07/19/2021 4:49 AM AIRPLANE PILOT HELPER Sexual Orientation Not on file COVID-19 Exposure Response Date Recorded In the last 10 days, have yo u been in contact with someone who was confirmed or suspected to have Coronavirus/COVID-19? No / Unsure 06/15/2022 2:27 PM AIRPLANE PILOT HELPER documented as of this encounter Plan of Treatment Not on file documented as of this encounter Visit Diagnoses Not on filedocumented in this encounter Care Teams Investment Manager Relationship Specialty Start Date End Date Mary Alonso DO [address] [place] [address] PCP - General FAMILY PRACTICE 04/28/20 documented as of this encounter
--- OUTSIDE RECORDS SUMMARY | 2025-02-23 08:19 | XMS_ITS | Encounter Summary ---
Author Organization [facility] Address [address] [place] [address] Care Team Providers Care Fire Extinguisher Inspector Name Role Phone Mary Alonso DO Primary Care Provider [phone] Encounter Details Date Type Department Care Team (Late st Contact Info) Description 08/10/2023 [email or web address] Message Enc [facility] Medical Group Family Medicine - [address], [address] [place] [id number] Mary Alonso DO [address] [place] [address] Message went through? 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
--- OUTSIDE RECORDS SUMMARY | 2025-02-23 08:19 | XMS_ITS | Encounter Summary ---
Author Organization [facility] Address [address] [place] [address] Care Team Providers Care Ncaa Compliance Internship Name Role Phone Mary Alonso DO Primary Care Provider [phone] Encounter Details Date Type Department Care Team (Late st Contact Info) Description 06/24/2022 MyCSignpostt Message Enc [facility] Medical Group Diabetes and Endocrinology - [place] [address] [place] [address] [place] [address] Thyroid paperwork, Part 2 Social History Tobacco Use Types Packs/Day Years [...] on file Legal Sex Female 11:37 AM INSURANCE SPECIALIST Gender Identity Female 07/19/2021 4:49 AM INSURANCE SPECIALIST Sexual Orientation Not on file COVID-19 Exposure Response Date Recorded In the last 10 days, have yo u been in contact with someone who was confirmed or suspected to have Coronavirus/COVID-19? No / Unsure 06/15/2022 2:27 PM INSURANCE SPECIALIST documented as of this encounter Plan of Treatment Not on file documented as of this encounter Visit Diagnoses Not on filedocumented in this encounter Care Teams Ncaa Compliance Internship Relationship Specialty Start Date End Date Mary Alonso DO [address] [place] [address] PCP - General FAMILY PRACTICE 04/28/20 documented as of this encounter
--- OUTSIDE RECORDS SUMMARY | 2025-02-23 08:19 | XMS_ITS | Encounter Summary ---
Author Organization [facility] Address [address] [place] [address] Care Team Providers Care Corporate Financial Analyst Name Role Phone Mary Alonso DO Primary Care Provider [phone] Encounter Details Date Type Department Care Team (Late st Contact Info) Description 03/10/2022 MyCAdaptive Computingt Message Enc [facility] Medical Group Family Medicine - [place] [address] [place] [address], [address] [place] [address] Mary Alonso DO [address] [place] [address] Referral and test questions Social History Tobacco Use Types Packs/Day Years Used Date Smoking Tobacco: Never Smokeless Tobacco: Never Comments:N/A Alcohol Use Standard Drinks/Week Comments Not Currently 0 (1 standard drink = 0.6 oz pur e alcohol) social PHQ-2 Answer Date Recorded PHQ-2 Score - If the patient scores above 3, please move on to questions 3-9 0 03/02/2022 Comments No Sex and Gender Information Value Date Recorded Sex Assigned at Not on file Legal Sex Female 11:37 AM APPRAISER ART Gender Identity Female 07/19/2021 4:49 AM APPRAISER ART Sexual Orientation Not on file COVID-19 Exposure Response Date Recorded In the last 10 days, have yo u been in contact with someone who was confirmed or suspected to have Coronavirus/COVID-19? No / Unsure 03/05/2022 8:59 AM CDT documented as of this encounter Plan of Treatment Not on file documented as of this encounter Visit Diagnoses Not on filedocumented in this encounter Care Teams Corporate Financial Analyst Relationship Specialty Start Date End Date Mary Alonso DO [address] [place] [address] PCP - General FAMILY PRACTICE 04/28/20 documented as of this encounter
--- OUTSIDE RECORDS SUMMARY | 2025-02-23 08:19 | XMS_ITS | Encounter Summary ---
Author Organization [facility] Address [address] [place] [address] Care Team Providers Care Satellite Dish Installer Name Role Phone Mary Alonso DO Primary Care Provider [phone] Encounter Details Date Type Department Care Team (Late st Contact Info) Description 01/09/2023 MyCOptimus3t Message Enc [facility] Medical Group Family Medicine - [place] [address] [facility], [address] [place] [address] Mary Alonso DO [address] [place] [address] Knee followup Social History Tobacco Use Types Packs/Day Years Used Date Smoking Tobacco: Never Smokeless Tobacco: Never Comments:N/A Alcohol Use Standard Drinks/Week Comments Yes 2.7 (1 standard drink = 0.6 oz p ure alcohol) Social PHQ-2 Answer Date Recorded Patient Health Questionnaire-2 Score 0 11/11/2022 Comments No Sex and Gender Information Value Date Recorded Sex Assigned at Not on file Legal Sex Female 11:37 AM BUSINESS OPERATIONS DIRECTOR Gender Identity Female 07/19/2021 4:49 AM BUSINESS OPERATIONS DIRECTOR Sexual Orientation Not on file documented as of this encounter Plan of Treatment Not on file documented as of this encounter Visit Diagnoses Not on filedocumented in this encounter Care Teams Satellite Dish Installer Relationship Specialty Start Date End Date Mary Alonso DO [address] [place] [address] PCP - General FAMILY PRACTICE 04/28/20 documented as of this encounter
--- OUTSIDE RECORDS SUMMARY | 2025-02-23 08:19 | XMS_ITS | Clinical Summary ---
Author Organization [facility] Address [address] [place] [address] Care Team Providers Care Adventure Education Teacher Name Role Phone Mary Alonso DO Primary Care Provider [phone] Allergies No known active allergies Medications valACYclovir (VALTREX) 500 MG tablet Take 1 tablet (500 mg total) by mouth as needed. 2 Active tretinoin (RETIN-A) 0.05 % cream APPLY PEA SIZED AMOUNT TOPICALLY TO THE AFFECTED AREA EVERY NIGHT 3 Active progesterone (PROMETRIUM) 100 MG capsule Take 1 capsule (100 mg total) by mouth nightly at bedtime. 3 Active liothyronine (CYTOMEL) 5 MCG Tab Take 3 tablets (15 mcg total) by mouth daily. 3 Active Dapsone 7.5 % Gel APPLY TOPICALLY TO ACNE PRONE AREAS DAILY 3 Active thyroid (ARMOUR) 120 MG OR TABS tablet Take 1 tablet (120 mg total) by mouth daily. Active tirzepatide (ZEPBOUND) 2.5 MG/0.5ML injectionIndica tions:Weight loss counseling, encounter for Inject 2.5 mg into the skin once a week. 3 mL 1 4 Active Active Problems Problem Noted Date Diagnosed Date Allergic rhinitis 05/22/2023 Encounter for follow-up exam ination after completed treatment for malignant neoplasm 05/22/2023 Cervicalgia 05/22/2023 Headache, unspecified 05/22/2023 Heartburn 05/22/2023 Metastatic neoplasm (CMS/HCC HHS/HCC) 05/22/2023 Myopia, bilateral 05/22/2023 Obesity 05/22/2023 Personal history of malignant neoplasm of thyroi d 05/22/2023 Regular astigmatism, bilateral 05/22/2023 Tinnitus, left ear 05/22/2023 Low back pain 05/22/2023 Migraine, unspecified, not i ntractable, without status migrainosus 05/22/2023 Malignant neoplasm of thyroid gland ([facility]) 05/22/2023 Thyroid cancer ([facility]) 06/15/2022 Backache 07/19/2021 Knee pain 07/19/2021 Migraine without aura 07/19/2021 Overview (07/19/2021): Follows with [facility], receives accupuncture there with benefit Last Assessment & Plan: -continue acupuncture at [place] -recommended OTC Excedrin migraine p.r.n. Cubital tunnel syndrome on left 11/23/2018 Overview (07/19/2021): Last Assessment & Plan: Suspect cubital tunnel syndrome of the left arm given history of 4th and 5th digit involvement and tenderness in the elbow groove -Trial ibuprofen 600 t.i.d. for 2 weeks to decrease inflammation -refer to occupational therapy for exercises, bracing, education on triggers Acne 10/16/2017 Overview (07/19/2021): Last Assessment & Plan: Patient reports continued acne. She has tried many treatment in past, but reports acne is worse. Refer to dermatology BMI 28.0-28.9,adult 10/16/2017 Overview (07/19/2021): Last Assessment & Plan: Patient is 5 months post . She reports gained weight during and is having problem getting weight off. 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 Advised to keep food diary --use [employer] genie. Also portion and choice control. Ov 4-6 wks. Hemorrhoids 10/16/2017 Overview (07/19/2021): Last Assessment & Plan: Patient reports hemorrhoids [...] this time. No thrombosed hemorrhoids on exam. 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 06/15/2022 Status post thyroid surgery 03/02/2022 06/15/2022 Healthcare maintenance 11/23/201803/02 Overview (07/19/2021): Health Maintenance - Contraception: condoms - A1c (for pts c BP >135/80): No results found for: HGBA1C - Lipids (women >45 or high risk): No results found for: LDL Lab Results Component Value Date LDLCALC 121 04/23/2018 - DEXA (women >65 or high risk): Cancer - Colonoscopy (age 50-75): Recommended F/U: - Mammogram (women age 50-74): @[facility]@ - Pap (women 21-65): 11/21/18 results pending - Lung / annual CT (55-80 c >30 pk-yr hx, and smoking in past 15yrs): Infectious Disease - HIV (age 15-65): neg 2019 per pt report - HBV (if at high risk): - HCV ( 2968-6449): - Gonorrhea/Chlamydia (women <24 or increased risk): - Syphilis (if increased risk): Immunizations - Influenza (annually): 04/2018 - Td/Tdap (q10 years): pt reports 2017 - PPSV23 / Pneumovax (age >65, smokers, immunocomp, DM, CKD, heart dz, lung dz, liver dz, EtOH, asplenia): - PCV13 (age >65, immunocomp, CKD, asplenia): - Shingles (age >60): - HPV (women <26): in high school - HAV (MSM or chronic liver disease): - HBV (DM, HIV, MSM, liver dz, CKD, healthcare workers): - Meningococcus (asplenia, college students): - HiB (asplenia, HSCT): Last Assessment & Plan: Discuss contraceptive options with patient. She is concerned about weight gain with OCPs. She feels uncomfortable with placement of IUD or Nuva ring. She is comfortable at this time continuing with condoms. Immunizations Immunization Administration Dates Next Due Influenza (Generic) 04/23/2021,03/19/2019,2017,03/19/2018 Tdap (Generic) 08/18/2020,04/18/2017 Family History Medical History Relation Comments Asthma Brother Arthritis Maternal Grandfather Cancer Maternal Grandfather Diabetes Maternal Grandfather Arthritis Maternal Grandmother Cancer Maternal Grandmother Diabetes Maternal Grandmother Stroke Maternal Grandmother Arthritis Mother COPD Mother Fibromyalgia Mother Miscarriages / Stillbirths Mother Thyroid Mother Vision loss Mother Relation Status Comments Brother Father Alive Maternal Grandfather Maternal Grandmother Mother Alive Social History Tobacco Use Types Packs/Day Years Used Date Smoking Tobacco: Never Passive Smoke Exposure: Never Smokeless Tobacco: Never Tobacco Cessation:Counseling Given: No Comments:Never Smoked Alcohol Use Standard Drinks/Week Comments Yes 2.7 (1 standard drink = 0.6 oz p ure alcohol) Social PHQ-2 Answer Date Recorded Patient Health Questionnaire-2 Score 0 08/17/2023 Comments No Sex and Gender Information Value Date Recorded Sex Assigned at Not on file Legal Sex Female 11:37 AM ALTERATIONS SEWER Gender Identity Female 07/19/2021 4:49 AM ALTERATIONS SEWER Sexual Orientation Not on file Last Filed Vital Signs Vital Sign Reading Time Taken Comments Blood Pressure 102/74 08/17/2023 3:03 PM ALTERATIONS SEWER Pulse 77 08/17/2023 3:03 PM ALTERATIONS SEWER Temperature 36.2 C (97.1 F) 08/17/2023 3:03 PM ALTERATIONS SEWER Respiratory Rate 18 08/17/2023 3:03 PM ALTERATIONS SEWER Oxygen Saturation 98% 08/17/2023 3:03 PM ALTERATIONS SEWER Inhaled Oxygen Concentration - - Weight 92 kg (202 lb 12.8 oz) 08/17/2023 3:03 PM ALTERATIONS SEWER Height 167.6 cm (5' 6) 03/30/2023 2:34 PM CDT Body Mass Index 32.73 03/30/2023 2:34 PM CDT Plan of Treatment Health Maintenance Due Date Last Done Comments Cervical Cancer Screening Pa p Smear (Age 30 to 64) Every 3 Years 1990 Hepatitis C 2008 Hepatitis B Vaccines (1 of 3 - 19+ 3-dose series) 2009 HPV Vaccines (1 - 3-dose SCD M series) 2017 PHQ-2 (Physician [place]) 06/19/2024 08/17/2023 Annual Physical 08/16/2024 08/17/2023, 07/19/2021 COVID-19 Vaccine (3 - 2024-2 6 season) 2025 11/24/2020, 11/03/2020 Cervical Cancer Screening Pa p with HPV Testing (Age 30 to 64) Every 5 Years 08/09/2026 08/09/2021 Cervical Cancer Screening wi th HPV 08/09/2026 DTaP, Tdap and Td Vaccines ( 3 - Td or Tdap) 08/18/2030 08/18/2020, 04/18/2017 Meningococcal B Vaccine Aged Out No l onger eligible based on patient's age to complete this topic Meningococcal Vaccine Aged Out No isaac home eligible based on patient's age to complete this topic Pneumococcal Vaccine: Pediatrics (0 to 5 Years) and At-Risk Patients (6 to 49 Years) Aged Out No longer eligible b ased on patient's age to complete this topic RSV Immunizations Under 20 Months Aged Out No longer eligible b ased on patient's age to complete this topic Procedures Procedure Name Priority Date/Time Associated Diagnosis Comments OUTSIDE CYTOPATH CERV/VAG IN TERPRET (PAP) 08/09/2021 from Last 3 Months or Most Recently Relevant to Health Maintenance Results * PAP SMEAR WITH HPV (08/09/2021) 08/09/2021 [facility] Scanned SCANNING Final Resu lt from Last 3 Months or Most Recently Relevant to Health Maintenance [place] [address] [place] [address] Care Teams Adventure Education Teacher Relationship Specialty Start Date End Date Mary Alonso DO [address] [place] [address] PCP - General FAMILY PRACTICE 04/28/20
--- OUTSIDE RECORDS SUMMARY | 2025-02-23 08:19 | XMS_ITS | Encounter Summary ---
Author Organization [facility] Address [address] [place] [address] Care Team Providers Care Parts Finisher Name Role Phone Mary Alonso DO Primary Care Provider [phone] Encounter Details Date Type Department Care Team (Late st Contact Info) Description 02/25/2022 Northeast Wireless Networkst Message Enc [facility] Medical Group Family Medicine - [place] [address] [place] [address], [address] [place] [phone] Mary Alonso DO [address] [place] [address] Senior Web Developer Social History Tobacco Use Types Packs/Day Years Used Date Smoking Tobacco: Never Smokeless Tobacco: Never Comments:N/A Alcohol Use Standard Drinks/Week Comments Not Currently 0 (1 standard drink = 0.6 oz pur e alcohol) social PHQ-2 Answer Date Recorded PHQ-2 Score - If the patient scores above 3, please move on to questions 3-9 0 04/28/2020 Comments No Sex and Gender Information Value Date Recorded Sex Assigned at Not on file Legal Sex Female 11:37 AM CLIMATE CHANGE RISK ASSESSOR Gender Identity Female 07/19/2021 4:49 AM CLIMATE CHANGE RISK ASSESSOR Sexual Orientation Not on file COVID-19 Exposure Response Date Recorded In the last 10 days, have yo u been in contact with someone who was confirmed or suspected to have Coronavirus/COVID-19? No / Unsure 02/26/2022 8:00 AM CDT documented as of this encounter Plan of Treatment Not on file documented as of this encounter Visit Diagnoses Not on filedocumented in this encounter Care Teams Parts Finisher Relationship Specialty Start Date End Date Mary Alonso DO [address] [place] [phone] PCP - General FAMILY PRACTICE 04/28/20 documented as of this encounter
--- OUTSIDE RECORDS SUMMARY | 2025-02-23 08:19 | XMS_ITS | Clinical Summary ---
Author Organization [facility] Address [address] [facility] [address] [place] [address] Phone Care Team Providers Care House Worker Name Role Phone Jorge Yeung MD PhD Primary Care Provider [phone] Allergies No known active allergies Medications ibuprofen (ADVIL,MOTRIN) 600 mg tablet Take 1 tablet (600 mg total) by mouth 3 (three) times a day 60 tablet 11/23/2018 Active Active Problems Problem Noted Date Diagnosed Date Healthcare maintenance 11/23/2018 Overview (11/23/2018): Health Maintenance - Contraception: condoms - A1c (for pts c BP >135/80): No results found for: HGBA1C - Lipids (women >45 or high risk): No results found for: LDL Lab Results Component Value Date LDLCALC 121 04/23/2018 - DEXA (women >65 or high risk): Cancer - Colonoscopy (age 50-75): Recommended F/U: - Mammogram (women age 50-74): @[facility]@ - Pap (women 21-65): 11/21/18 results pending - Lung / annual CT (55-80 c >30 pk-yr hx, and smoking in past 15yrs): Infectious Disease - HIV (age 15-65): neg 2018 per pt report - HBV (if at high risk): - HCV ( 0613-6415): - Gonorrhea/Chlamydia (women <24 or increased risk): [...] (asplenia, college students): - HiB (asplenia, HSCT): Assessment & Plan (11/23/2018 12:28 PM CDT): Discuss contraceptive options with patient. She is concerned about weight gain with OCPs. She feels uncomfortable with placement of IUD or Nuva ring. She is comfortable at this time continuing with condoms. Ulnar nerve compression, left 11/23/2018 Assessment & Plan (11/23/2018 12:29 PM CDT): Suspect cubital tunnel syndrome of the left arm given history of 4th and 5th digit involvement and tenderness in the elbow groove -Trial ibuprofen 600 t.i.d. for 2 weeks to decrease inflammation -refer to occupational therapy for exercises, bracing, education on triggers Cubital tunnel syndrome on left 11/23/2018 Acne 10/16/2017 Assessment & Plan (10/16/2017 12:33 PM CDT): Patient reports continued acne. She has tried many treatment in past, but reports acne is worse. Refer to dermatology Hemorrhoids 10/16/2017 Assessment & Plan (10/16/2017 12:35 PM CDT): Patient reports hemorrhoids during her . She reports they will occ flare up. Patient reports she had a 'bubble' but it has gotten better. She wants to know how to get rid of hemorrhoids. Advised to keep stool soft and if has pain , call or rtc. Discussed treatment option, I do not recommend surgery at this time. No thrombosed hemorrhoids on exam. BMI 28.0-28.9,adult 10/16/2017 Assessment & Plan (10/16/2017 12:37 PM CDT): Patient is 5 months post . She reports gained weight during and is having problem getting weight off. 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 Advised to keep food diary --use [employer] genie. Also portion and choice control. Ov 4-6 wks. Migraine without aura Overview (11/23/2018): Follows with [facility], receives accupuncture there with benefit Assessment & Plan (11/23/2018 12:27 PM CDT): -continue acupuncture at [place] -recommended OTC Excedrin migraine p.r.n. Knee pain Back pain Immunizations Immunization Administration Dates Next Due Influenza, Unspecified 04/01/2018,2017(Deferred: Patient Refused),04/18/2017(Deferred: Patient Refused),04/18/2016(Deferred: Patient Refused) Tdap 04/18/2017 Surgical History Surgery Date Site/Laterality Comments WISDOM TOOTH EXTRACTION THYROID CYST EXCISION LASIK Medical History Medical History Date Comments Headache migraines Knee pain Back pain Family History Medical History Relation Name Comments Asthma Brother No Known Problems Father Diabetes Maternal Grandfather Colon cancer Maternal Grandmother Diabetes Maternal Grandmother Glaucoma Maternal Grandmother Leukemia Maternal Grandmother Migraines Maternal Grandmother Diabetes Mother Fibromyalgia Mother Glaucoma Mother Migraines Mother No Known Problems Sister Relation Name Status Comments Brother Father Maternal Grandfather Maternal Grandmother Mother Sister Social History Tobacco Use Types Packs/Day Years Used Date Smoking Tobacco: Never Smokeless Tobacco: Never Alcohol Use Standard Drinks/Week Comments Yes 1 (1 standard drink = 0.6 oz pur e alcohol) weekly AUDIT-C Answer Date Recorded Frequency of Alcohol Consumption 2-4 times a mon11/23/2018 Average Number of Drinks Not on file 019 Frequency of Binge Drinking Not on file 12/2018 Personal Safety Answer Date Recorded Getting School Help Needed Not on file 09/02 Comments Unknown Sex and Gender Information Value Date Recorded Sex Assigned at Not on file Legal Sex Female 9:39 AM CDT Gender Identity Female 04/09/2019 3:47 PM CDT Sexual Orientation Not on file 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 Not on file Not on file Not on file Obstetrics History Para Term AB IAB SAB Ectopic Multiple Livin g Live Births 1 Last Filed Vital Signs Vital Sign Reading Time Taken Comments Blood Pressure 117/77 11/23/2018 9:06 AM CDT Pulse 84 11/23/2018 9:06 AM CDT Temperature 36.7 C (98 F) 11/23/2018 9:06 AM CDT Respiratory Rate 16 11/23/2018 9:06 AM CDT Oxygen Saturation 100% 11/23/2018 9:06 AM CDT Inhaled Oxygen Concentration - - Weight 83 kg (183 lb) 11/23/2018 9:06 AM CDT Height 167.6 cm (5' 6) 04/13/2018 10:04 AM CDT Body Mass Index 29.54 04/13/2018 10:04 AM CDT Plan of Treatment Not on file Goals Goal Patient Goal Type Associated Problems Recent Progress Patient-Stated? Author Eat a balanced, healthy diet Diet Oren Robertson [place] [address] [employer] [facility]S [facility] Care Teams House Worker Relationship Specialty Start Date End Date Jorge Yeung MD PhD PCP - General 11/23/18
[2025-02-23 08:28] VITALS: BP 116/77; PULSE 58; RESP 18; TEMP 35.9; O2SAT 100
--- NOTE | 2025-02-23 08:36 | ED.URI ---
HPI - URI/Sore Throat General Chief Complaint: Upper Respiratory Infection Stated Complaint: Sinus Infection Time Seen by Provider: 02/23/25 08:36 Source: patient Mode of arrival: ambulatory Limitations: no limitations History of Present Illness HPI Narrative: 34 yo F presents with c/o sinus congestion for 10 days. Taking Zyrtec with no relief. Afebrile. States maxiallary and frontal sinus pressure. Drainage has changed from green to yellow. Concered for sinus infection. [facility] All systems reviewed and negative except as noted above. Related Data Home Medications ?Medication ?Instructions ?Recorded ?Confirmed ?Last Taken ?Type thyroid (pork) 90 mg tablet 90 mg DIRECTED 07/22/22 09/10/23 Unknown History ([place]ino Thyroid) liothyronine 5 mcg tablet 15 mcg PO DAILY 09/10/23 02/23/25 Unknown History spironolactone 100 mg tablet 100 mg PO DAILY 09/10/23 02/23/25 Unknown History Allergies Allergy/AdvReac Type Severity Reaction Status Date / Time polymyxin B (From Polytrim) AdvReac Other Verified 02/23/25 08:20 trimethoprim (From Polytrim) AdvReac Other Verified 02/23/25 08:20 PMFSH Past Medical History Medical History Asthma HSV-1 (herpes simplex virus 1) infection Migraines Vaginal delivery Surgical History Surgical History H/O thyroidectomy [place] teeth removed Family History Family History Grandparent Carcinoma of colon Diabetes mellitus Cerebrovascular accident Leukemia Mother Fibromyalgia Social History Social History Smoking status: Never smoker Alcohol intake: current Drinks per week: 1 Substance use: never Gender identity (if verbalized by the patient): Female Spiritual care concerns: No Comments At time of signature, agree with nursing past medical, surgical, social and family history. There is no relevant family history pertinent to the presenting complaint. Exam Narrative: GENERAL: This is a well-nourished, well-developed patient, in no apparent distress. HEAD: normocephalic, atraumatic. EYES: PERRL. Sclera clear/white. Vision is grossly intact. EARS: External ears normal, auditory canals clear and without drainage, TMs normal without perforation. Hearing grossly intact. NOSE: External nose normal with Congestion, erythema and swelling to bilateral nares, maxillary sinus tenderness on palpation THROAT: Mucous membranes moist, erythematous with postnasal drainage. No exudates or swelling. NECK: Neck supple, non-tender without lymphadenopathy, masses or thyromegaly. CARDIOVASCULAR: Regular rate and rhythm without murmurs, gallops, or rubs. RESPIRATORY: Clear to auscultation. Breath sounds equal bilaterally. No wheezes, rales, or rhonchi. SKIN: warm, Dry, intact with no suspicious lesions or rash, good texture and turgor. NEURO: awake, alert, and oriented to person, place and time. There were no obvious focal neurologic abnormalities. EXTREMITIES: No joint tenderness, effusion, or edema noted. Course Course Level of Care: Express Care Visit Vital Signs Vital signs: Vital Signs Temperature 35.9 C L 02/23/25 08:28 Pulse Rate 58 L 02/23/25 08:28 Respiratory Rate 18 02/23/25 08:28 Blood Pressure 116/77 02/23/25 08:28 Pulse Oximetry 100 02/23/25 08:28 Oxygen Delivery Room Air 02/23/25 08:28 Temperature 35.9 C L 02/23/25 08:28 Pulse Rate 58 L 02/23/25 08:28 Respiratory Rate 18 02/23/25 08:28 Blood Pressure 116/77 02/23/25 08:28 Pulse Oximetry 100 02/23/25 08:28 Oxygen Delivery Room Air 02/23/25 08:28 Reviewed MDM - URI/Sore Throat MDM Narrative Medical decision making narrative: will treat patient for bacterial sinusitis due to duration of symptoms and exam findings. Patient is alert, nontoxic. Recommend she purchase [id number] Flonase and take as directed packaging. Differential Diagnosis Differential diagnosis: Likely upper respiratory infection, sinusitis and viral infection Discharge Plan Discharge Clinical Impression: Acute bacterial sinusitis Patient Disposition: Home Condition: Stable Instructions: Antibiotic Form, Sinusitis (ED) Additional Instructions: Take antibiotic as prescribed until gone. Use Flonase daily. Use as directed on packaging. Drink at least 64 ounces of water a day. Place cool mist humidifier in bedroom where you sleep. See your doctor if not improving. Patient Language: Portuguese Prescriptions: New amoxicillin-pot clavulanate 875-125 mg tablet 1 tablet PO Q12H 7 Days Qty: 14 0RF No Action thyroid (pork) [[place]ino Thyroid] 90 mg tablet 90 mg DIRECTED spironolactone 100 mg tablet 100 mg PO DAILY liothyronine 5 mcg tablet 15 mcg PO DAILY Follow-up/Referrals: aGvin,DO Mary [Primary Care Provider, Unknown] Time of Disposition: 08:43
== END 2025-02-23 08:46 | disposition home or self-care (01) ==
PROVIDERS: Emergency Provider Nurse Practitioner Family; PCP Family Medicine
DX: J01.90 Acute sinusitis, unspecified (principal); J45.909 Unspecified asthma, uncomplicated
CPT/HCPCS: 99213; G0463